=== PATIENT | female | born 1975 | race African-American/Black ===

== ENCOUNTER 2025-09-03 23:34 | Emergency (ER) | payer MEDICAID ==
[~2025-09-03] VITALS: Ht 157.5 cm; Wt 88.6 kg
--- NOTE | 2025-09-04 01:10 | DVH ---
EXAM: XY R FOOT 3 VIEW XRAY HISTORY: RIGHT FOOT PAIN COMPARISON: None TECHNIQUE: Three views of the right foot were performed. FINDINGS/IMPRESSION: No acute fracture or dislocation is seen. There is a right hallux valgus deformity. There is mild diffuse subcutaneous swelling. If clinical symptoms persist, CT or MRI may be beneficial in further assessment.
--- NOTE | 2025-09-04 02:16 | ED.PDOC ---
Musculoskeletal HPI Comments CC OF RIGHT FOOT PAIN X3 DAYS. PT DENIES TRAUMA. 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 Family History Family History: Unobtainable Social History Smoker: Non-Smoker Alcohol: Occasionally Drugs: Denies Drug Use Lives In: Home Musculoskeletal: reports: others (Right foot pain) All Other Systems: Reviewed and Negative Physical Exam General Appearance: Mild Distress HEENT: Normal ENT Inspection, Pharynx Normal, TMs Normal Neck: Full Range of Motion, Non-Tender, Normal, Normal Inspection Respiratory: Chest Non-Tender, Lungs Clear, No Accessory Muscle Use, No Respiratory Distress, Normal Breath Sounds Cardiovascular: No Edema, No JVD, No Murmur, No Gallop, Normal Peripheral Pulses, Regular Rate/Rhythm Breast Exam: Deferred Gastrointestinal: No Organomegaly, Non Tender, No Pulsatile Mass, Normal Bowel Sounds, Soft Genitalia: Deferred Pelvic: Deferred Rectal: Deferred Extremities: No calf tenderness, Normal capillary refill, Normal inspection, Normal range of motion, Non-tender, No pedal edema Musculoskeletal : Apperance: Normal Neurologic: Alert, c4 planner II-XII nml as Tested, No Motor Deficits, Normal Affect, Normal Mood, No Sensory Deficits Cerebellar Function: Normal Reflexes: Normal Skin: Dry, Normal Color, Warm Lymphatic: No Adenopathy Was a procedure done? Was a procedure done?: No Differential Diagnosis EXT Differential Diagnosis: Cellulitis, Deep Vein Thrombosis, Compartment Syndrome, Fracture, Sprain, Dislocation, Laceration, DJD, Contusion, Strain, Neurovascular injury, Arthritis, Bursitis, Other X-Ray, Labs, Meds, VS Vital Signs Date Time Temp Pulse Resp B/P (MAP) Pulse Ox O2 Delivery O2 Flow Rate FiO2 09/04/25 03:00 97.9 85 16 119/60 (79) 97 97.9 09/03/25 23:42 97.6 85 18 131/75 95 97.6 Time of 1ST Reevaluation: 01:00 Reevaluation 1ST: Unchanged Patient Education/Counseling: Diagnosis, Treatment Family Education/Counseling: No Family Present Departure 1 Departure Time of Disposition: 02:16 Impression: Primary Impression: Contusion of right foot Disposition: 01 HOME / SELF CARE / HOMELESS Condition: Stable Additional Instructions: Your xrays today showed: FINDINGS/IMPRESSION: No acute fracture or dislocation is seen. There is a right hallux valgus deformity. There is mild diffuse subcutaneous swelling. If clinical symptoms persist, CT or MRI may be beneficial in further assessment. Follow up with your primary physician Return to the ED for any worsening symptoms or concerns Discharged With: Self Critical Care Note Critical Care Time?: No Stability Stability form required: No Heart Score Heart Score: Heart Score Response (Comments) Value History N/A 0 EKG N/A 0 Age N/A 0 Risk Factors N/A 0 Troponin N/A 0 Total 0 PURVI NIETO MD Sep 04, 2025 02:16
[2025-09-04 03:00] VITALS: BP 119/60; PULSE 85; RESP 16; TEMP 97.9; O2SAT 97
== END 2025-09-04 03:10 | disposition home or self-care (01) ==
LOC: EDBD 23:34 → ER 23:34
DX: S90.31XA Contusion of right foot, initial encounter (principal); Z88.0 Allergy status to penicillin; X58.XXXA Exposure to other specified factors, initial encounter; Y93.89 Activity, other specified; Y92.89 Other specified places as the place of occurrence of the external cause; Y99.8 Other external cause status
CPT/HCPCS: 73630